=== PATIENT | male | born 1980 ===

== ENCOUNTER 2016-12-05 11:48 | Emergency (ER) | payer MEDICARE, OTHER ==
[2016-12-05] MEDS ORDERED: Haloperidol Lactate 5 mg/mL 1mL Vial IM STA (11:59)
[2016-12-05] MEDS ORDERED: Haloperidol Lactate 5 mg/mL 1mL Vial ONE (12:01)
[2016-12-05 12:11] VITALS: BP 104/63
[2016-12-05 12:34] LABS: % BASOPHILS 0.3 % (0.0-2.0); % EOSINOPHILS 1.4 % (0.0-5.0); % LYMPHOCYTES 31.4 % (20.0-50.0); % MONOCYTES 6.3 % (2.0-10.0); % NEUTROPHILS 60.6 % (40.0-80.0); HEMATOCRIT 39.8 % (39.0-49.0); HEMOGLOBIN 13.4 gm/dL (13.2-17.3); MEAN CELL VOLUME 90.7 fl (80-99); MEAN CORPUSCULAR HEMOGLOBIN 30.4 pg (26.0-30.0); MEAN CORPUSCULAR HGB CONC 33.6 pg (28.0-36.0); MEAN PLATELET VOLUME 10.2 fl; NEUTROPHILE ABSOLUTE 4.9 Th/cmm (1.8-8.0); PLATELET COUNT 126 Th/cmm (150-400); RED BLOOD COUNT 4.39 Mil/cmm (4.30-5.70); RED CELL DISTRIBUTION WIDTH 14.1 % (11.5-20.0)
[2016-12-05 12:50] LABS: ALB/GLOB RATIO 1.5 (1.0-1.8); ALKALINE PHOSPHATASE 77 U/L (34-104); ANION GAP 10.6 (7.0-16.0); BILIRUBIN,TOTAL 0.8 mg/dL (0.3-1.0); BUN - UREA NITROGEN 23 mg/dL (7-25); BUN/CREATININE RATIO 38.3; CALCIUM SERUM 9.7 mg/dL (8.6-10.3); CARBON DIOXIDE 30.3 mEq/L (21.0-31.0); CHLORIDE 101 mEq/L (98-107); CREATININE - SERUM 0.6 mg/dL (0.7-1.3); GLUCOSE 80 mg/dL (70-105); POTASSIUM SERUM 3.9 mEq/L (3.5-5.1); SGOT 17 U/L (13-39); SGPT/ALT 15 U/L (7-52); SODIUM SERUM 138 mEq/L (136-145)
[2016-12-05 12:54] LABS: ACETAMINOPHEN < 10.0 ug/mL (10.0-30.0)
--- NOTE | 2016-12-05 12:59 | ED Physician Chart ---
Chief Complaint/HPI - Patient Information Date Seen:: 12/05/16 Time Seen:: 11:50 Chief Complaint:: agitation History of Present Illness:: 36-year-old male history of intellectual disability brought in with acute, worsening, constant, moderate, increased agitation since yesterday. Sent in for medical screening examination. History limited patient has underlying intellectual disability History provided by EMS, EMS run sheet and transfer documents Allergies:: Allergies Allergy/AdvReac Type Severity Reaction Status Date / Time No Known Allergies Allergy Verified 12/05/16 12:10 Vitals:: Vital Signs - 8 hr 12/05/16 12/05/16 12:10 12:12 Temp 97.4 F HR 63 RR 15 BP 104/63 104/63 O2 Sat % 97 Historian:: EMS Review:: Nurse's Note Reviewed, EMS run form Reviewed, Transfer documents Reviewed Review of Systems - Review of Systems Other: Complete system review otherwise unremarkable except as noted in HPI. Past Medical History - Past Medical History Past Medical History: HTN, PUD/GERD, Other (muscle weakness, hypertension, hyperlipidemia, dysphagia, intellectual disability, major depressive disorder, anxiety, bipolar disorder, GERD) Family History: None Social History: Non Smoker, No Alcohol, No Drug Use, Care Facility Surgical History: None Psychiatricy History: None Medication: Reviewed Family Medical History - Family Member Mother History Unknown: Yes Ethnicity: Non- Physical Exam - Physical Examination Other:: INITIAL VITAL SIGNS: Reviewed by me GENERAL: Alert and interactive, intellectually disabled, combative HEAD: Head is normocephalic and atraumatic EYES: EOMI. . No scleral icterus. No conjunctival injection ENT: Moist mucous membranes. NECK: Supple. No masses. Full range of motion RESPIRATORY: No tachypnea. Clear breath sounds bilaterally. No wheezing, rales, or rhonchi CV: Regular rate and rhythm. No murmurs, rubs, or gallops ABDOMEN: Soft, non-distended, non-tender. No guarding. No rebound. No masses. EXTREMITIES: No deformity. No cyanosis. No edema. SKIN: Warm and dry. No obvious rashes. NEUROLOGIC: Alert and oriented. Face is symmetric. Speech is normal. Moves all extremities equally. Motor and sensory distally intact. Labs/Radiology/EKG Results - Lab Results Results: Laboratory Tests 12/05/16 12/05/16 12:25 12:25 WBC 8.0 RBC 4.39 Hgb 13.4 Hct 39.8 MCV 90.7 MCH 30.4 H MCHC Differential 33.6 RDW 14.1 Plt Count 126 L MPV 10.2 Neutrophils % 60.6 Lymphocytes % 31.4 Monocytes % 6.3 Eosinophils % 1.4 Basophils % 0.3 Sodium 138 Potassium 3.9 Chloride 101 Carbon Dioxide 30.3 Anion Gap 10.6 BUN 23 Creatinine 0.6 L Est GFR ( Amer) > 60.0 Est GFR (Non-Af Amer) > 60.0 BUN/Creatinine Ratio 38.3 Glucose 80 Calcium 9.7 Total Bilirubin 0.8 AST 17 ALT 15 Alkaline Phosphatase 77 Total Protein 7.2 Albumin 4.3 Globulin 2.9 Albumin/Globulin Ratio 1.5 - EKG Interpretations Comments:: 12-lead EKG Interpretation by Elizabeth Potts MD: Normal Sinus Rhythm with ventricular rate of 70 beats per minute Normal axis Normal intervals No acute ST or T wave changes. No obvious STEMI ED Septic Shock - . Is Septic Shock (SBP<90, OR Lactate>4 mmol\L) present?: No - <6hrs of presentation: Vital Signs: Vital Signs - 8 hr 12/05/16 12/05/16 12:10 12:12 Temp 97.4 F HR 63 RR 15 BP 104/63 104/63 O2 Sat % 97 Reassessment (Disposition) - Reassessment Reassessment:: Patient has aggressive and very uncooperative. Required some sedation in order to obtain labs and vital signs. Patient medically cleared. Returned to facility. Reassessment Condition:: Improved - Diagnosis Diagnosis:: Medical screening exam Psychosis, NOS Hypertension Intellectual disability - Aftercare/Follow up Instructions Aftercare/Follow-Up Instructions:: Counseled pt regarding lab results/diagnosis & need follow up, Refer to Discharge Instructions - Patient Disposition Discharge/Transfer:: Home Time:: 12:58 Condition at Disposition:: Improved ED Discharge Plan - Patient Disposition Admit/Discharge/Transfer: PT DISCHARGED HOME Condition at Disposition: Improved Instructions: Bipolar Disorder Additional Instructions: No signs of infection process. No acute lab abnormalities.
[2016-12-05 13:14] LABS: URINE BILIRUBIN NEGATIVE (NEGATIVE); URINE COLOR YELLOW; URINE GLUCOSE (UA) NEGATIVE (NEGATIVE); URINE KETONE NEGATIVE (NEGATIVE)
[2016-12-05 13:15] LABS: URINE BLOOD SMALL (NEGATIVE); URINE PROTEIN NEGATIVE (NEGATIVE)
[2016-12-05 13:20] LABS: URINE BACTERIA NONE SEEN /hpf (NONE SEEN); URINE EPITHELIAL CELLS FEW /lpf (FEW); URINE RBC 0-2 /hpf (0-5); URINE WBC 0-2 /hpf (0-5)
[2016-12-05 13:34] LABS: AMPHETAMINE URINE NEGATIVE (NEGATIVE); BARBITURATES URINE NEGATIVE (NEGATIVE)
== END 2016-12-05 15:30 | disposition home or self-care (01) ==
LOC: ER 11:48
DX: F29 Unspecified psychosis not due to a substance or known physiological condition (principal); I10 Essential (primary) hypertension; F79 Unspecified intellectual disabilities; K21.9 Gastro-esophageal reflux disease without esophagitis
CPT/HCPCS: 99285; 96372 ×3; 93005; 36415; 80300; 84443; 85025; 81001; 80329 ×2; 80053; J2060; J1200; J1630; Z7610